=== PATIENT | female | born 1945 | race African-American/Black ===

== ENCOUNTER 2017-09-07 06:51 | Day surgery (SDC) | payer OTHER, MEDICAID ==
[2017-09-07] MEDS ORDERED: TETRACAINE 0.5% OPHTH 1 DOSE AFFEYE ONE ×2 (07:15→09:14)
[2017-09-07] MEDS ORDERED: VIGAMOX 0.5% OPHTH 1 DOSE AFFEYE ONE ×5 (07:20→09:32)
[2017-09-07] MEDS ORDERED: NS 500 ML IV 500 ML IV ONE (07:23)
[2017-09-07] MEDS ORDERED: PROLENSA OPHTH 1 DOSE AFFEYE ONE (07:31)
[2017-09-07] MEDS ORDERED: ALPHAGAN-P OPHTH 1 DOSE AFFEYE ONE (07:32)
[2017-09-07] MEDS ORDERED: AK-DILATE 2.5% OPHTH 1 DOSE OP ONE ×3 (07:33→07:35)
[2017-09-07] MEDS ORDERED: MYDRIACIL OPHTH 1 DOSE AFFEYE ONE ×3 (07:33→07:35)
[2017-09-07] MEDS ORDERED: CYCLOGYL 1% OPHTH 1 DOSE OP ONE ×3 (07:33→07:35)
[2017-09-07] MEDS ORDERED: BETADINE OPHTH SOLN 5% EACHEYE ONE (08:55)
[2017-09-07] MEDS ORDERED: DUOVISC IO ONE (09:19)
[2017-09-07] MEDS ORDERED: ADRENALINE CHL INJ IJ ONE (09:19)
[2017-09-07] MEDS ORDERED: XYLOCAINE-MPF 1% IJ ONE (09:19)
[2017-09-07] MEDS ORDERED: BSS OPHTH (PLAIN) 500 ML with VANCOMYCIN HCL 500 MG VIAL 25 MG, ADRENALINE CHL INJ 1 MG IR ONE ×3 (09:19)
[2017-09-07 09:51] VITALS: BP 141/69
[2017-09-07] MEDS ORDERED: VERSED ONE (10:31)
== END 2017-09-07 09:55 | disposition home or self-care (01) ==
LOC: SURG1 06:51
PROVIDERS: ATTEND Ophthalmology
PROC: 08RJ3JZ Replacement of Right Lens with Synthetic Substitute, Percutaneous Approach (ICD-10-PCS; principal; 2017-09-07 08:30)
PROC: 08DJ3ZZ Extraction of Right Lens, Percutaneous Approach (ICD-10-PCS; principal; 2017-09-07 08:30)
DX: H25.011 Cortical age-related cataract, right eye (principal); H25.11 Age-related nuclear cataract, right eye
CPT/HCPCS: 99100; A4217; J0170; J2250; J3370